=== PATIENT | male | born 1985 | race Two or more races ===

== ENCOUNTER 2025-05-07 13:14 | Emergency (ER) | payer MEDICAID, OTHER ==
[~2025-05-07] VITALS: Ht 180.3 cm; Wt 95.5 kg
[2025-05-07 13:17] VITALS: BP 126/96; PULSE 103; RESP 16; TEMP 98.2; O2SAT 100
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
== END 2025-05-07 15:35 ==
LOC: EDBD 13:14 → ER 13:14
DX: F10.129 Alcohol abuse with intoxication, unspecified (principal); Y90.9 Presence of alcohol in blood, level not specified